=== PATIENT | male | born 1945 | race Caucasian/White ===

== ENCOUNTER 2017-11-21 01:44 | Observation (INO) | payer MEDICARE ==
[2017-11-21] VITALS (9 sets, daily range): BP systolic 121–156; BP diastolic 71–87; PULSE 69–106; RESP 16–20; TEMP 96.6–99.1; O2SAT 92–96
[~2017-11-21] VITALS: Ht 172.7 cm; Wt 94.8 kg
[~2017-11-21 01:44] MED LIST: ALPR1CON PO; AMLO10 PO; ATOR40TA49 PO; CLOP75 PO; DYAZ37.52 PO; FISH1000 PO; LOSA100T PO; MILK175C5 PO; NAPR220T95 PO; OMEP20TA PO; REST30CA PO; TOPR100T15 PO
[2017-11-21] MEDS ORDERED: SODIUM CHLORIDE 0.9% FLUSH 10 ML FLUSH IVF PRN (02:00)
[2017-11-21] MEDS ORDERED: OMEGCAP PO (02:07)
[2017-11-21] MEDS ORDERED: MILK175C7 PO (02:07)
[2017-11-21] MEDS ORDERED: REST30CA PO (02:07)
[2017-11-21] MEDS ORDERED: LOSA100T PO (02:07)
[2017-11-21] MEDS ORDERED: TRIA37.5 PO (02:07)
[2017-11-21] MEDS ORDERED: ALPR0.25 PO (02:07)
[2017-11-21] MEDS ORDERED: AMLO10 PO (02:07)
[2017-11-21] MEDS ORDERED: ATOR40TA16 PO (02:07)
[2017-11-21] MEDS ORDERED: OMEP20TA93 PO (02:07)
[2017-11-21] MEDS ORDERED: PLAV75TA29 PO (02:07)
[2017-11-21] MEDS ORDERED: MEDI220T PO (02:07)
[2017-11-21] MEDS ORDERED: TOPR50TA PO (02:07)
[2017-11-21 02:11] LABS: AUTOMATED NEUTROPHIL # 4.3 TH/MM3 (1.8-7.7); BASOPHIL # 0.1 TH/MM3 (0-0.2); BASOPHIL % 1.3 % (0.0-2.0); EOSINOPHIL # 0.1 TH/MM3 (0-0.4); EOSINOPHIL % 1.4 % (0.0-4.0); HEMOGLOBIN 14.9 GM/DL (13.0-17.0); LYMPH % 28.9 % (9.0-44.0); MEAN CELL VOLUME 92.9 FL (80.0-100.0); MEAN CORPUSCULAR HEMOGLOBIN 30.8 PG (27.0-34.0); MEAN CORPUSCULAR HGB CONC 33.1 % (32.0-36.0); MEAN PLATELET VOLUME 7.5 FL (7.0-11.0); MONO % 8.1 % (0.0-8.0); MONOCYTE # 0.6 TH/MM3 (0-0.9); NEUT % 60.3 % (16.0-70.0); PLATELET COUNT 233 TH/MM3 (150-450); RED BLOOD COUNT 4.84 MIL/MM3 (4.50-5.90); RED CELL DISTRIBUTION WIDTH 13.2 % (11.6-17.2); WHITE BLOOD COUNT 7.1 TH/MM3 (4.0-11.0)
--- NOTE | 2017-11-21 02:17 | PD ---
HPI Chief Complaint: Cardiac Complaint Time Seen by Provider: 01:58 Travel History International Travel<30 days: No Contact w/Intl Traveler<30days: No Traveled to known affect area: No History of Present Illness HPI 72-year-old male presents to the emergency department for complaint of palpitations diaphoresis and shortness of breath. Patient has history of an irregular heartbeat and is prescribed Plavix. Patient is followed by shingle packer Dr. Banks and is scheduled for an appointment on Thursday. Patient states while asleep he is awake and with palpitations. Patient states that he could feel the irregular heartbeat. Patient states that her heart rate was intermittently very fast and then slow. No near syncope or syncope and denies any chest pain at home or here in current pain is 0/10 intensity. No report of referred neck jaw back shoulder arm pain. Patient does have history of hypertension and dyslipidemia. No report of long-distance travel protracted bedrest or surgical procedure. PFSH Past Medical History Narrative Medical Plavix therapy, dyslipidemia, hypertension, CAD, CABG, melanoma status post excision; alcohol use; nursing notes reviewed Hx Anticoagulant Therapy: Yes (plavix) Cardiovascular Problems: Yes Chemotherapy: No Cerebrovascular Accident: No Diabetes: No Hypertension: Yes Respiratory: Yes Past Surgical History Appendectomy: Yes Coronary Artery Bypass Graft: Yes (1989) Hysterectomy: No Other Surgery: Yes (HERNIA REPAIR) Social History Alcohol Use: Yes (3-4 DRINKS A DAY) Tobacco Use: No Substance Use: No Allergies-Medications (Allergen,Severity, Reaction): Coded Allergies: No Known Allergies (Verified , 05/23/15) Reported Meds & Prescriptions Reported Meds & Active Scripts Active Reported Triamterene-Hydrochlorothiazide 37.5-25 Mg Tab 1 Tab PO DAILY Toprol XL (Metoprolol Succinate) 50 Mg Tab 50 Mg PO DAILY Restoril (Temazepam) 30 Mg Cap 30 Mg PO HS PRN Omeprazole 20 Mg Tab 20 Mg PO TWICE WEEKLY [place]-3 Fish Oil/Vitamin (Fish Oil-Cholecalciferol) 1,000-1,000 Mg Cap 3 Cap PO BID Naproxen Sodium 220 Mg Tab 220 Mg PO BID PRN Milk Thistle 175 Mg Cap 1 Cap PO DAILY Losartan (Losartan Potassium) 100 Mg Tab 100 Mg PO DAILY Atorvastatin (Atorvastatin Calcium) 40 Mg Tab 40 Mg PO HS Plavix (Clopidogrel Bisulfate) 75 Mg Tab 75 Mg PO DAILY Norvasc (Amlodipine Besylate) 10 Mg Tab 10 Mg PO DAILY Alprazolam 0.25 Mg Tab 0.25 Mg PO BID Review of Systems Except as stated in HPI: all other systems reviewed are Neg General / Constitutional: No: Fever, Chills HENT: No: Congestion Cardiovascular: Positive: Diaphoresis, No: Chest Pain or Discomfort Respiratory: Positive: Shortness of Breath Gastrointestinal: Positive: Nausea, No: Abdominal Pain Musculoskeletal: No: Myalgias, Arthralgias, Edema Skin: No Rash Neurologic: No: Weakness, Dizziness, Syncope, Focal Abnormalities, Coordination Problem Psychiatric: Positive: Anxiety Hematologic/Lymphatic: No: Lymph Node Enlargement Physical Exam Narrative GENERAL: Well-developed well-nourished male no acute distress or respiratory distress; GCS 15 SKIN: Warm and dry. HEAD: Normocephalic. EYES: No scleral icterus. No injection or drainage. NECK: Supple, trachea midline. No JVD or lymphadenopathy. CARDIOVASCULAR: Irregularly irregular rate and rhythm without murmurs, gallops, or rubs. RESPIRATORY: Breath sounds equal bilaterally. No accessory muscle use. GASTROINTESTINAL: Abdomen soft, non-tender, nondistended. MUSCULOSKELETAL: No cyanosis, or edema. BACK: Nontender without obvious deformity. No CVA tenderness. Data Data Last Documented VS Vital Signs Date Time Temp Pulse Resp B/P (MAP) Pulse Ox O2 Delivery O2 Flow Rate FiO2 11/21/17 02:26 93 16 136/71 (92) 93 Room Air 11/21/17 01:51 98.3 Orders Orders Electrocardiogram (11/21/17 01:58) Basic Metabolic Panel (Bmp) (11/21/17 01:58) Ckmb (Isoenzyme) Profile (11/21/17 01:58) Complete Blood Count With Diff (11/21/17 01:58) Magnesium (Mg) (11/21/17 01:58) Prothrombin Time / Inr (Pt) (11/21/17 01:58) Act Partial Throm Time (Ptt) (11/21/17 01:58) Troponin I (11/21/17 01:58) Ecg Monitoring (11/21/17 01:58) Bilateral Bp Monitoring (11/21/17 01:58) Iv Access Insert/Monitor (11/21/17 01:58) Oximetry (11/21/17 01:58) Oxygen Administration (11/21/17 01:58) Sodium Chloride 0.9% Flush (Ns Flush) (11/21/17 02:00) Chest, Single Ap (11/21/17 ) B-Type Natriuretic Peptide (11/21/17 01:58) Aspirin Chew (Aspirin Chew) (11/21/17 02:30) Thyroid Stimulating Hormone (11/21/17 02:00) Potassium Chloride (Kcl) (11/21/17 02:30) Potassium Chlor 10 Meq Premix (Kcl 10 Me (11/21/17 02:30) CKMB (11/21/17 02:00) CKMB% (11/21/17 02:00) Labs Laboratory Tests Test 11/21/17 02:00 White Blood Count 7.1 TH/MM3 Red Blood Count 4.84 MIL/MM3 Hemoglobin 14.9 GM/DL Hematocrit 45.0 % Mean Corpuscular Volume 92.9 FL Mean Corpuscular Hemoglobin 30.8 PG Mean Corpuscular Hemoglobin Concent 33.1 % Red Cell Distribution Width 13.2 % Platelet Count 233 TH/MM3 Mean Platelet Volume 7.5 FL Neutrophils (%) (Auto) 60.3 % Lymphocytes (%) (Auto) 28.9 % Monocytes (%) (Auto) 8.1 % Eosinophils (%) (Auto) 1.4 % Basophils (%) (Auto) 1.3 % Neutrophils # (Auto) 4.3 TH/MM3 Lymphocytes # (Auto) 2.0 TH/MM3 Monocytes # (Auto) 0.6 TH/MM3 Eosinophils # (Auto) 0.1 TH/MM3 Basophils # (Auto) 0.1 TH/MM3 CBC Comment DIFF FINAL Differential Comment Prothrombin Time 10.4 SEC Prothromb Time International Ratio 1.0 RATIO Activated Partial Thromboplast Time 24.3 SEC Blood Urea Nitrogen 18 MG/DL Creatinine 1.00 MG/DL Random Glucose 120 MG/DL Calcium Level 8.6 MG/DL Magnesium Level 1.9 MG/DL Sodium Level 137 MEQ/L Potassium Level 2.9 MEQ/L Chloride Level 101 MEQ/L Carbon Dioxide Level 26.3 MEQ/L Anion Gap 10 MEQ/L Estimat Glomerular Filtration Rate 74 ML/MIN Total Creatine Kinase 154 U/L Creatine Kinase MB 2.7 NG/ML Troponin I LESS THAN 0.02 NG/ML B-Type Natriuretic Peptide 132 PG/ML Thyroid Stimulating Hormone 3rd Gen 3.530 uIU/ML MDM Medical Decision Making Medical Screen Exam Complete: Yes Emergency Medical Condition: Yes Medical Record Reviewed: Yes Interpretation(s) EKG: Atrial fibrillation with occasional PVC rate 90 incomplete right bundle branch block left axis deviation; review of previous EKG sinus rhythm with right bundle branch block Differential Diagnosis Palpitations, arrhythmia, electrolyte disturbance, thyroid dysfunction, ACS, [place] , PE Narrative Course Patient placed on playground monitor IV access obtained specimens collections of resulting EKG ordered patient given aspirin Zina Rodriguez MD Nov 21, 2017 02:17
[2017-11-21 02:22] LABS: CALCIUM 8.6 MG/DL (8.5-10.1); CHLORIDE 101 MEQ/L (98-107); SODIUM (NA) 137 MEQ/L (136-145)
[2017-11-21 02:23] LABS: PROTHROMBIN TIME - PATIENT 10.4 SEC (9.8-11.6)
[2017-11-21 02:26] LABS: BICARBONATE 26.3 MEQ/L (21.0-32.0); BLOOD UREA NITROGEN 18 MG/DL (7-18); GLOMERULAR FILTRATION RATE 74 ML/MIN (>89); GLUCOSE,RANDOM 120 MG/DL (74-106); MAGNESIUM 1.9 MG/DL (1.5-2.5)
[2017-11-21] MEDS ORDERED: POTASSIUM CHLOR 10 MEQ PREMIX 100 ML IV ONE (02:30)
[2017-11-21] MEDS ORDERED: POTASSIUM CHLORIDE 20 MEQ CONTROLLED RELEASE TAB PO ONE (02:30)
[2017-11-21] MEDS ORDERED: ASPIRIN 81 MG CHEW TAB CHEW ONE (02:30)
[2017-11-21 02:33] LABS: TROPONIN I LESS THAN 0.02 NG/ML (0.02-0.05)
--- NOTE | 2017-11-21 02:54 | RADRPT ---
EXAM DATE/TIME: 11/21/2017 02:00 [place] COMPARISON: CHEST SINGLE AP, May 23, 2015, 20:00. INDICATIONS : Chest pain. MEDICAL HISTORY : None. SURGICAL HISTORY : None. ENCOUNTER: Initial ACUITY: 1 day PAIN SCORE: 4/10 LOCATION: Bilateral chest FINDINGS: Single AP view of the chest. Median sternotomy wires are present. The lungs are clear. Thoracic aorta is tortuous. M cardiomediastinal ediastinal silhouette is unchanged from prior study. No evidence of pleural effusion or pneumothorax. CONCLUSION: No acute cardiopulmonary disease identified. Jeramie Drake MD on November 21, 2017 at 2:50 Board Certified Radiologist. This report was verified electronically.
[2017-11-21] MEDS ORDERED: SODIUM CHLOR 0.9% 1000 ML INJ 1,000 ML IV SCH (03:47)
[2017-11-21] MEDS ORDERED: MAGNESIUM HYDROXIDE SUSP 30 ML CUP PO PRN (04:00)
[2017-11-21] MEDS ORDERED: ACETAMINOPHEN/HYDROcodone 325 MG/5 MG TAB PO PRN (04:00)
[2017-11-21] MEDS ORDERED: LACTULOSE SYRUP 20 GM/30 ML CUP PO PRN (04:00)
[2017-11-21] MEDS ORDERED: SODIUM CHLORIDE 0.9% FLUSH 10 ML FLUSH IV FLUSH PRN (04:00)
[2017-11-21] MEDS ORDERED: TEMAZEPAM 15 MG CAP PO PRN (04:00)
[2017-11-21] MEDS ORDERED: MORPHINE SULFATE 2 MG/ML SYRINGE IV PUSH PRN (04:00)
[2017-11-21] MEDS ORDERED: SENNOSIDES 8.6 MG TAB PO PRN (04:00)
[2017-11-21] MEDS ORDERED: ACETAMINOPHEN 325 MG TAB PO PRN (04:00)
[2017-11-21] MEDS ORDERED: BISACODYL 10 MG SUPP RECTAL PRN (04:00)
[2017-11-21] MEDS ORDERED: NON-FORMULARY DRUG (Omeprazole 20 MG) PO SCH (04:00)
[2017-11-21] MEDS ORDERED: ONDANSETRON HCL 4 MG/2 ML VIAL IVP PRN (04:00)
[2017-11-21] MEDS ORDERED: POTA10CA PO (08:10)
--- NOTE | 2017-11-21 08:35 | HHI.HP ---
[facility] Service [facility] Primary Care Physician Karen Browning M.D. Admission Diagnosis New onset atrial fibrillation; hypokalemia Diagnoses: (1) Atrial fibrillation Diagnosis: Principal Chief Complaint: Palpitations Travel History International Travel<30 Days: No Contact w/Intl Traveler <30 Da: No Traveled to Known Affected Are: No History of Present Illness This is a pleasant 72-year-old male patient with a known medical history of hypertension, dyslipidemia, CAD with history of CABG on Plavix who presented to the ED with complaints of palpitations and diaphoresis. Patient states that last evening when he was trying to go to sleep he noticed his heart skipping a beat and racing. He states this lasted until presentation to the ED. EKG was performed showing atrial flutter with controlled heart rate, right bundle branch block. Patient states he has had some arrhythmias in the past, but unsure if this was atrial fibrillation. Patient does follow with Dr. Banks for his CAD and has been placed on Plavix for his history of CABG due to unspecified intolerance to aspirin. Patient denies any associated symptoms such as chest pain, abdominal pain, nausea, vomiting, diarrhea. He denies any recent illness including fever, chills, cough, shortness of breath, diarrhea or dysuria. Patient denies any lightheadedness or dizziness. Patient denies any current tobacco use. Does have a history of hypertension dyslipidemia controlled on medications. PCP is Dr. Webb, seen last week with no changes in medications. He does have a follow-up appointment with Dr. Banks next week. Last stress test was reportedly 3 years ago and supposedly negative. Chest x-ray on presentation showing no acute cardiopulmonary disease. CBC unremarkable. BMP is showing hypokalemia 2.9. Troponins flat. Review of Systems Constitutional: COMPLAINS OF: Diaphoretic episodes, DENIES: Fatigue, Fever, Chills Eyes: DENIES: Blurred vision, Diplopia Respiratory: DENIES: Cough, Sputum production, Shortness of breath Cardiovascular: COMPLAINS OF: Palpitations Gastrointestinal: DENIES: Abdominal pain, Black stools, Bloody stools, Constipation, Diarrhea, Nausea, Vomiting Musculoskeletal: DENIES: Joint pain Psychiatric: DENIES: Anxiety Except as stated in HPI: all other systems reviewed are Neg Past Family Social History Past Medical History CAD with history of CABG Hypertension Dyslipidemia Melanoma status post excision Past Surgical History Skin excision of melanoma CABG in 1998 Hernia repair 2 Appendectomy Reported Medications Active Reported Potassium Chloride ER (Potassium Chloride) 10 Meq Cap 10 Meq PO DAILY Triamterene-Hydrochlorothiazide 37.5-25 Mg Tab 1 Tab PO DAILY Toprol XL (Metoprolol Succinate) 50 Mg Tab 50 Mg PO DAILY Restoril (Temazepam) 30 Mg Cap 30 Mg PO HS PRN Omeprazole 20 Mg Tab 20 Mg PO TWICE WEEKLY [place]-3 Fish Oil/Vitamin (Fish Oil-Cholecalciferol) 1,000-1,000 Mg Cap 3 Cap PO BID Naproxen Sodium 220 Mg Tab 220 Mg PO BID PRN Milk Thistle 175 Mg Cap 1 Cap PO DAILY Losartan (Losartan Potassium) 100 Mg Tab 100 Mg PO DAILY Atorvastatin (Atorvastatin Calcium) 40 Mg Tab 40 Mg PO HS Plavix (Clopidogrel Bisulfate) 75 Mg Tab 75 Mg PO DAILY Norvasc (Amlodipine Besylate) 10 Mg Tab 10 Mg PO DAILY Alprazolam 0.25 Mg Tab 0.25 Mg PO BID Allergies: Coded Allergies: No Known Allergies (Verified Allergy, Unknown, 11/21/17) Active Ordered Medications Current Medications Medications (Trade) Dose Ordered Sig/Kendrick Route Start Time Stop Time Status Last Admin (NS Flush) 2 ml UNSCH PRN IV FLUSH 11/21/17 04:00 (NS Flush) 2 ml BID IV FLUSH 11/21/17 09:00 (Zofran Inj) 4 mg Q6H PRN IVP 11/21/17 04:00 (Tylenol) 650 mg Q6H PRN PO 11/21/17 04:00 (Nesbit 5-325 Mg) 1 tab Q4H PRN PO 11/21/17 04:00 (Morphine Inj) 2 mg Q3H PRN IV PUSH 11/21/17 04:00 (Juju-Colace) 1 tab BID PO 11/21/17 09:00 (Milk Of Magnesia Liq) 30 ml Q12H PRN PO 11/21/17 04:00 (Senokot) 17.2 mg Q12H PRN PO 11/21/17 04:00 (Dulcolax Supp) 10 mg DAILY PRN RECTAL 11/21/17 04:00 (Lactulose Liq) 30 ml DAILY PRN PO 11/21/17 04:00 (Xanax) 0.25 mg BID PO 11/21/17 09:00 11/21/17 08:13 (Norvasc) 10 mg DAILY PO 11/21/17 09:00 11/21/17 08:12 (Lipitor) 40 mg HS PO 11/21/17 21:00 (Plavix) 75 mg DAILY PO 11/21/17 09:00 11/21/17 08:13 (Cozaar) 100 mg DAILY PO 11/21/17 09:00 11/21/17 08:12 (Toprol Xl) 50 mg DAILY PO 11/21/17 09:00 11/21/17 08:12 (Restoril) 30 mg HS PRN PO 11/21/17 04:00 (Protonix) 20 mg WeFr PO 11/25/17 09:00 Family History Family history significant for cardiovascular disease, mother had an MO and CABG and of AAA. Social History Denies any tobacco use, states he quit that years ago. Does admit to 3-4 beers daily. Denies any illicit drug use. Physical Exam Vital Signs Vital Signs Date Time Temp Pulse Resp B/P (MAP) Pulse Ox O2 Delivery O2 Flow Rate FiO2 11/21/17 05:58 80 11/21/17 05:00 96.6 85 18 156/79 (104) 94 11/21/17 04:45 11/21/17 03:45 86 18 146/82 (103) 93 Room Air 11/21/17 02:26 93 16 136/71 (92) 93 Room Air 11/21/17 01:51 98.3 101 18 155/76 (102) 96 11/21/17 01:51 Room Air Physical Exam GENERAL: Well-developed, well-nourished patient in NAD. SKIN: Warm and dry. No rash. HEAD: Normocephalic. Atraumatic. EYES: Pupils equal and round. No scleral icterus. No injection or drainage. ENT: No nasal bleeding or discharge. Mucous membranes pink and moist. NECK: Supple. Trachea midline. CARDIOVASCULAR: Irregularly irregular. No murmur appreciated. No chest pain to palpation. RESPIRATORY: No accessory muscle use. Clear to auscultation. Breath sounds equal bilaterally. GASTROINTESTINAL: Abdomen soft, non-tender, nondistended. Normoactive bowel sounds x4. MUSCULOSKELETAL: No obvious deformities. Extremities without clubbing, cyanosis , or edema. NEUROLOGICAL: Awake and alert. No obvious cranial nerve deficits. Motor grossly within normal limits. 5/5 muscle strength in bilateral upper and lower extremities. Normal speech. PSYCHIATRIC: Appropriate mood and affect; insight and judgment normal. Laboratory Laboratory Tests Test 11/21/17 02:00 White Blood Count 7.1 Red Blood Count 4.84 Hemoglobin 14.9 Hematocrit 45.0 Mean Corpuscular Volume 92.9 Mean Corpuscular Hemoglobin 30.8 Mean Corpuscular Hemoglobin Concent 33.1 Red Cell Distribution Width 13.2 Platelet Count 233 Mean Platelet Volume 7.5 Neutrophils (%) (Auto) 60.3 Lymphocytes (%) (Auto) 28.9 Monocytes (%) (Auto) 8.1 Eosinophils (%) (Auto) 1.4 Basophils (%) (Auto) 1.3 Neutrophils # (Auto) 4.3 Lymphocytes # (Auto) 2.0 Monocytes # (Auto) 0.6 Eosinophils # (Auto) 0.1 Basophils # (Auto) 0.1 CBC Comment DIFF FINAL Differential Comment Prothrombin Time 10.4 Prothromb Time International Ratio 1.0 Activated Partial Thromboplast Time 24.3 Blood Urea Nitrogen 18 Creatinine 1.00 Random Glucose 120 Calcium Level 8.6 Magnesium Level 1.9 Sodium Level 137 Potassium Level 2.9 Chloride Level 101 Carbon Dioxide Level 26.3 Anion Gap 10 Estimat Glomerular Filtration Rate 74 Total Creatine Kinase 154 Creatine Kinase MB 2.7 Troponin I LESS THAN 0.02 B-Type Natriuretic Peptide 132 Thyroid Stimulating Hormone 3rd Gen 3.530 Result Diagram: 11/21/17 0200 11/21/17 0200 Imaging Last Impressions Chest X-Ray 11/21/17 0000 Signed Impressions: Service Date/Time: Tuesday, November 21, 2017 02:00 - CONCLUSION: No acute cardiopulmonary disease identified. Jeramie Drake MD Septic Shock Reassessment Septic shock perfusion: reassessment completed Caprini VTE Risk Assessment Caprini VTE Risk Assessment: No/Low Risk (score <= 1) Caprini Risk Assessment Model Point Value = 1 Point Value = 2 Point Value = 3 Point Value = 5 Age 41-60 Minor surgery BMI > 25 kg/m2 Swollen legs Varicose veins or History of unexplained or recurrent spontaneous Oral contraceptives or hormone replacement Sepsis (< 1 month) Serious lung disease, including pneumonia (< 1 month) Abnormal pulmonary function Acute myocardial infarction Congestive heart failure (< 1 month) History of inflammatory bowel disease Medical patient at bed rest Age 61-74 Arthroscopic surgery Major open surgery (> 45 min) Laparoscopic surgery (> 45 min) Malignancy Confined to bed (> 72 hours) Immobilizing plaster cast Central venous access Age >= 75 History of VTE Family history of VTE Factor V Leiden Prothrombin [id number] Lupus anticoagulant Anticardiolipin antibodies Elevated serum homocysteine Heparin-induced thrombocytopenia Other congenital or acquired thrombophilia Stroke (< 1 month) Elective arthroplasty Hip, pelvis, or leg fracture Acute spinal cord injury (< 1 month) Prophylaxis Regimen Total Risk Factor Score Risk Level Prophylaxis Regimen 0-1 Low Early ambulation 2 Moderate Order ONE of the following: *Sequential Compression Device (SCD) *Heparin 5000 units SQ BID 3-4 Higher Order ONE of the following medications: *Heparin 5000 units SQ TID *Enoxaparin/Lovenox 40 mg SQ daily (WT < 150 kg, CrCl > 30 mL/min) *Enoxaparin/Lovenox 30 mg SQ daily (WT < 150 kg, CrCl > 10-29 mL/min) *Enoxaparin/Lovenox 30 mg SQ BID (WT < 150 kg, CrCl > 30 mL/min) AND/OR *Sequential Compression Device (SCD) 5 or more Highest Order ONE of the following medications: *Heparin 5000 units SQ TID (Preferred with Epidurals) *Enoxaparin/Lovenox 40 mg SQ daily (WT < 150 kg, CrCl > 30 mL/min) *Enoxaparin/Lovenox 30 mg SQ daily (WT < 150 kg, CrCl > 10-29 mL/min) *Enoxaparin/Lovenox 30 mg SQ BID (WT < 150 kg, CrCl > 30 mL/min) AND *Sequential Compression Device (SCD) Assessment and Plan Problem List: (1) Atrial fibrillation ICD Code: I48.91 - Unspecified atrial fibrillation Assessment and Plan This is a pleasant 72-year-old male patient with a known medical history of hypertension, dyslipidemia, CAD with history of CABG on Plavix who presented to the ED with complaints of palpitations and diaphoresis. Patient states that last evening when he was trying to go to sleep he noticed his heart skipping a beat and racing. New onset atrial fibrillation Hypertension, chronic History of CAD with history of CABG - Patient follows with Dr. Hartmann in the office. Spoke to him personally, he was updated about patient's presentation to the hospital. He states that this is a new onset atrial fibrillation, does have arrhythmias in the past. Has been placed on Plavix due to an intolerance to aspirin for history of CABG. Orders to just continue Plavix and start on Xarelto daily, as well as increase his metoprolol XL to 75 mg daily. Patient has an office appointment in a couple weeks and he will see him then. - Patient has been monitored on cardiac telemetry, no new events overnight, heart rate has been controlled under 100 bpm. Denies any chest pain or discomfort. - Patient stable at this time and agreeable to the plan of medication changes and following up with Dr. Hartmann in his office. - Continue all other home medications. Hypokalemia: K2.9 upon presentation. Replacement given. Awaiting repeat BMP. DVT prophylaxis: Xarelto. SCDs. Full code. Will discharge today if BMP showing resolution of hypokalemia. Kenyatta Almendarez Nov 21, 2017 08:35
[2017-11-21] MEDS ORDERED: SODIUM CHLORIDE 0.9% FLUSH 10 ML FLUSH IV FLUSH SCH (09:00)
[2017-11-21] MEDS ORDERED: DOCUSATE SODIUM 50 MG/SENNA 8.6 MG TAB PO SCH (09:00)
[2017-11-21] MEDS ORDERED: ALPRAZolam 0.25 MG TAB PO SCH (09:00)
[2017-11-21] MEDS ORDERED: METOPROLOL SUCCINATE 50 MG EXTENDED RELEASE TAB PO SCH (09:00)
[2017-11-21] MEDS ORDERED: CLOPIDOGREL 75 MG TAB PO SCH (09:00)
[2017-11-21] MEDS ORDERED: LOSARTAN 50 MG TAB PO SCH (09:00)
[2017-11-21] MEDS ORDERED: METO1TAB9 PO (11:40)
[2017-11-21] MEDS ORDERED: XARE20TA PO (11:40)
--- NOTE | 2017-11-21 11:41 | HHI.DCPOC ---
Discharge Care Plan Diagnosis: (1) Atrial fibrillation Goals to Promote Your Health * To prevent worsening of your condition and complications * To maintain your health at the optimal level Directions to Meet Your Goals Take your medications as prescribed Follow your dietary instruction Follow activity as directed Keep your appointments as scheduled Take your immunizations and boosters as scheduled If your symptoms worsen call your PCP, if no PCP go to Urgent Care Center or Emergency Room Smoking is Dangerous to Your Health. Avoid second hand smoke Call the 24-hour hour crisis hotline for domestic abuse at Kenyatta Almendarez Nov 21, 2017 11:41
[2017-11-21 14:36] LABS: BICARBONATE 28.1 MEQ/L (21.0-32.0); CALCIUM 7.9 MG/DL (8.5-10.1)
[2017-11-21 14:40] LABS: CREATININE 1.1 MG/DL (0.60-1.30)
[2017-11-21 14:44] LABS: TROPONIN I 0.02 NG/ML (0.02-0.05)
[2017-11-21] MEDS ORDERED: POTASSIUM CHLORIDE 10 MEQ CONTROLLED RELEASE TAB PO ONE (15:15)
--- NOTE | 2017-11-21 16:58 | EKG ---
Date Performed: 11/21/2017 Time Performed: 02:06:29 PTAGE: 72 years EKG: ATRIAL FIBRILLATION WITH ABERRANT CONDUCTION OR VENTRICULAR PREMATURE COMPLEXES BORDERLINE LEFT AXIS DEVIATION INCOMPLETE RIGHT BUNDLE BRANCH BLOCK MODERATE ST DEPRESSION Compared to previous tracing, there's a rhythm change from Sinus rhythm to atrial fibrillation. Ventricular ectopic beats are new. ABNORMAL ECG PREVIOUS TRACING : 05/23/2015 20.10 DOCTOR: Scott Ireland Interpretating Date/Time 11/21/2017 16:56:12
--- NOTE | 2017-11-21 16:58 | EKG ---
Date Performed: 11/21/2017 Time Performed: 08:40:01 PTAGE: 72 years EKG: ATRIAL FLUTTER/TACHYCARDIA BORDERLINE LEFT AXIS DEVIATION INCOMPLETE RIGHT BUNDLE BRANCH BL OCK MODERATE ST DEPRESSION Compared to previous tracing, the atrial fibrillation appears to be more o f an atrial fib/flutter. Otherwise no significant change. Ventricular ectopic beats are no longer pre sent ABNORMAL ECG PREVIOUS TRACING : 11/21/2017 02.06 DOCTOR: Scott Ireland Interpretating Date/Time 11/21/2017 16:57:32
--- NOTE | 2017-11-21 17:54 | ECHRPT ---
Indication: ATRIAL FIB CONCLUSIONS The left ventricular systolic function is normal with an estimated ejection fraction in the range of 60-65%. Doppler parameters are consistent with impaired left ventricular relaxtion (grade 1 diastolic dysfun ction). Trace aortic valve regurgitation. There is trace tricuspid valve regurgitation. BP: / HR: Rhythm: Sinus MEASUREMENTS (Male / Female) Normal Values Technical Quality:Fair 2D ECHO LVOT Diameter 2.3 cm LV Ejection Fraction MOD 4C 68.8 % LV Ejection Fraction 4C AL 69.9 % M-MODE LV Diastolic Diameter MM 6.5 cm 4.2 - 5.9 / 3.9 - 5.3 cm LV Systolic Diameter MM 4.6 cm LV Ejection Fraction MM Teich 54.2 % IVS Diastolic Thickness MM 1.0 cm 0.6 - 1.0 / 0.6 - 0.9 cm LVPW Diastolic Thickness MM 1.0 cm 0.6 - 1.0 / 0.6 - 0.9 cm LV Relative Wall Thickness MM 0.3 0.24 - 0.42 / 0.22 - 0.42 LV Mass Index MM 128.9 g/m 49 - 115 / 43 - 95 g/m Aortic Root Diameter MM 2.9 cm LA Systolic Diameter MM 3.7 cm LA Ao Ratio MM 1.3 AV Cusp Separation MM 2.4 cm DOPPLER AV Peak Velocity 117.0 cm/s AV Peak Gradient 5.5 mmHg AI Peak Velocity 272.0 cm/s AI Peak Gradient 29.6 mmHg AI Pressure Half Time 656.5 ms LVOT Peak Velocity 84.9 cm/s LVOT Peak Gradient 2.9 mmHg AV Area Cont Eq pk 3.0 cm MV Area PHT 3.7 cm Mitral E Point Velocity 58.2 cm/s Mitral A Point Velocity 67.6 cm/s Mitral E to A Ratio 0.9 LV E' Lateral Velocity 6.7 cm/s Mitral E to LV E' Lateral Ratio 8.6 LV E' Septal Velocity 9.3 cm/s Mitral E to LV E' Septal Ratio 6.3 PV Peak Velocity 77.4 cm/s PV Peak Gradient 2.4 mmHg FINDINGS LEFT VENTRICLE The left ventricular systolic function is normal with an estimated ejection fraction in the range of 60-65%. Wall thickness is normal. Doppler parameters are consistent with impaired left ventricular relaxtion (grade 1 diastolic dysfun ction). RIGHT VENTRICLE Normal right ventricular size and systolic function. LEFT ATRIUM The left atrial size is upper limits of normal. RIGHT ATRIUM The right atrial size is normal. ATRIAL SEPTUM Normal atrial septal thickness AORTA The aortic root and proximal ascending aorta are normal in size on limited imaging. MITRAL VALVE Structurally normal mitral valve. No mitral valve stenosis or regurgitation. AORTIC VALVE Trileaflet aortic valve. Aortic valve sclerosis is present. Trace aortic valve regurgitation. No aortic valve stenosis. TRICUSPID VALVE Structurally normal tricuspid valve No tricuspid valve stenosis. There is trace tricuspid valve regurgitation. PULMONARY VALVE The pulmonary valve is not well visualized. VESSELS The inferior vena cava is normal in size. PERICARDIUM No pericardial effusion. Justen Wang DO (Electronically Signed) Final Date:21 November 2017 17:52
[2017-11-21] MEDS ORDERED: ATORVASTATIN 40 MG TAB PO SCH (21:00)
[2017-11-25] MEDS ORDERED: PANTOPRAZOLE SOD 20 MG DELAYED RELEASE TAB PO SCH (09:00)
== END 2017-11-21 17:28 | disposition home or self-care (01) ==
LOC: PHED 01:44 → PHEDA 03:48 → PH3A 04:46
PROVIDERS: ADMIT Hospitalist; ATTEND Hospitalist
DX: I48.91 Unspecified atrial fibrillation (principal); I48.92 Unspecified atrial flutter; I45.10 Unspecified right bundle-branch block; I25.10 Atherosclerotic heart disease of native coronary artery without angina pectoris; I10 Essential (primary) hypertension; E78.5 Hyperlipidemia, unspecified; E87.6 Hypokalemia; Z95.1 Presence of aortocoronary bypass graft; Z85.820 Personal history of malignant melanoma of skin; Z82.49 Family history of ischemic heart disease and other diseases of the circulatory system
CPT/HCPCS: 71045; 80048; 82550; 82552; 83735; 83880; 84443; 84484; 85025; 85610; 85730; 93005; 93306; 96365; 96376; 99285; G0378; J3480; J7030